=== PATIENT | male | born 1985 | race American Indian/Alaskan Native ===

== ENCOUNTER 2017-10-15 22:48 | Emergency (ER) | payer OTHER ==
[2017-10-15 23:34] LABS: Basophils % (Auto) 0.3 % (0.0-1.8); Eosinophils % (Auto) 0.1 % (0.0-4.3); Hematocrit 46.8 % (35.5-45.6); Hemoglobin 15.7 gm/dl (11.8-15.2); Lymphocytes # (Auto) 0.8 K/mm3 (1.2-5.4); Lymphocytes % (Auto) 7.7 % (13.4-35.0); Mean Corpuscular HGB Conc 34 % (32-34); Mean Corpuscular Hemoglobin 32 pg (28-32); Mean Corpuscular Volume 94 fl (84-94); Monocytes # (Auto) 0.5 K/mm3 (0.0-0.8); Monocytes % (Auto) 4.7 % (0.0-7.3); Platelet Count 186 K/mm3 (140-440); Red Blood Count 4.97 M/mm3 (3.65-5.03)
[2017-10-15 23:59] LABS: Alanine Aminotransferase 22 units/L (7-56); Albumin 4.3 g/dL (3.9-5); BUN/Creatinine Ratio 13; Blood Urea Nitrogen 15 mg/dL (9-20); Calcium 9.2 mg/dL (8.4-10.2); Hemolysis Index 9; Lipase 15 units/L (13-60)
[2017-10-16] MEDS ORDERED: ZOFRAN ODT ONE (02:57)
[2017-10-16] MEDS ORDERED: ZOFRAN ODT PO ONE (03:01)
[2017-10-16 05:36] LABS: Bacteria,Urine 1+ /HPF (Negative); Bilirubin,Urine NEG (Negative); Blood,Urine MOD (Negative); Color,Urine Yellow (Yellow); Mucus,Urine 2+ /HPF; Urobilinogen,Urine < 2.0 mg/dL (<2.0)
[2017-10-16] MEDS ORDERED: ZOFRAN IV ONE (06:11)
[2017-10-16] MEDS ORDERED: NACL 0.9% 1000 ML 1,000 ML IV ONE (06:12)
[2017-10-16] MEDS ORDERED: TORADOL IV ONE (06:15)
[2017-10-16] MEDS ORDERED: TORADOL ONE (06:15)
[2017-10-16] MEDS ORDERED: cefTRIAXone 1 GM in NACL 0.9% 20 ML IV ONE (07:10)
[2017-10-16] MEDS ORDERED: PEPCID IV ONE (07:10)
[2017-10-16] MEDS ORDERED: ZITHROMAX PO ONE (07:12)
[2017-10-16] MEDS ORDERED: BENADRYL IV ONE (07:12)
[2017-10-16] MEDS ORDERED: REGLAN IV ONE (07:12)
--- NOTE | 2017-10-16 07:46 | Emergency Department Report ---
ED N/V/D HPI - General Chief complaint: Nausea/Vomiting/Diarrhea Stated complaint: BODY PAIN/NAUSEA/VOMITING Time Seen by Provider: 10/16/17 06:58 Source: patient Mode of arrival: Ambulatory Limitations: No Limitations - History of Present Illness Initial comments: 32-year-old male with no past medical or surgical history presents to Hospital complaints of nausea, vomiting, diarrhea, abdominal pain since yesterday. [place]. Denies sick contacts, international travel , hematemesis, hematochezia, melena, or fever. Pain is generalized, sharp, intermittent and fluctuating and is moderate to severe in intensity. Patient also had a lot of back pain times one day and denies dysuria, hematuria, or penile discharge. - Related Data Previous Rx's Medication Instructions Recorded Last Taken Type Cephalexin [Keflex] 500 mg PO BID #14 capsule 10/16/17 Unknown Rx Ondansetron [Zofran Odt] 4 mg PO Q8HR PRN #20 tab.rapdis 10/16/17 Unknown Rx Promethazine [Phenergan] 25 mg GA Q6HR PRN #12 supp.rect 10/16/17 Unknown Rx traMADol [Ultram 50 MG tab] 50 mg PO Q6HR PRN #15 tablet 10/16/17 Unknown Rx Allergies Allergy/AdvReac Type Severity Reaction Status Date / Time No Known Allergies Allergy Unverified 10/15/17 22:56 ED Review of Systems ROS: Stated complaint: BODY PAIN/NAUSEA/VOMITING Other details as noted in HPI Comment: All other systems reviewed and negative ED Past Medical Hx - Past Medical History Previous Medical History?: No - Surgical History Past Surgical History?: No - Social History Smoking Status: Never Smoker Substance Use Type: None - Medications Home Medications: Home Medications Medication Instructions Recorded Confirmed Last Taken Type Cephalexin [Keflex] 500 mg PO BID #14 capsule 10/16/17 Unknown Rx Ondansetron [Zofran Odt] 4 mg PO Q8HR PRN #20 tab.rapdis 10/16/17 Unknown Rx Promethazine [Phenergan] 25 mg GA Q6HR PRN #12 supp.rect 10/16/17 Unknown Rx traMADol [Ultram 50 MG tab] 50 mg PO Q6HR PRN #15 tablet 10/16/17 Unknown Rx ED Physical Exam - General Limitations: No Limitations - Other Other exam information: General: No limitations, patient is alert in no acute distress Head exam: Atraumatic, normocephalic Eyes exam: Normal appearance, nonicteric sclerae ENT: Mucous membrane Neck exam: Normal inspection, full range of motion, no meningismus nontender Respiratory exam: Clear to auscultation bilateral, no wheezes, rales, crackles Cardiovascular: Normal rate and rhythm, normal heart sounds Abdomen: Soft, nondistended, and nontender, with normal bowel sounds, no rebound, or guarding Extremity: Full range of motion normal inspection no deformity Back: Normal Inspection, full range of motion, no tenderness Neurologic: Alert, oriented x3, cranial nerves intact, no motor or sensory deficit Psychiatric: normal affect, normal mood Skin: Warm, dry, intact ED Course Vital Signs 10/15/17 10/16/17 10/16/17 22:52 02:59 05:38 Temperature 98.9 F 98.3 F Pulse Rate 77 67 44 L Respiratory 18 20 10 L Rate Blood Pressure 128/66 126/87 O2 Sat by Pulse 100 100 100 Oximetry 10/16/17 10/16/17 10/16/17 05:45 06:00 06:15 Temperature Pulse Rate 47 L Respiratory 16 11 L 12 Rate Blood Pressure 134/86 138/83 138/83 O2 Sat by Pulse 97 98 100 Oximetry 10/16/17 10/16/17 10/16/17 06:29 06:31 06:45 Temperature Pulse Rate Respiratory 16 18 11 L Rate Blood Pressure 120/71 113/53 O2 Sat by Pulse 100 100 100 Oximetry 10/16/17 10/16/17 10/16/17 07:01 07:15 07:30 Temperature Pulse Rate Respiratory 14 15 10 L Rate Blood Pressure 126/63 126/63 120/75 O2 Sat by Pulse 100 99 100 Oximetry 10/16/17 10/16/17 10/16/17 07:45 08:01 08:15 Temperature Pulse Rate Respiratory 14 15 19 Rate Blood Pressure 120/60 129/63 120/58 O2 Sat by Pulse 100 100 100 Oximetry 10/16/17 10/16/17 10/16/17 08:30 08:45 09:00 Temperature Pulse Rate Respiratory 19 22 19 Rate Blood Pressure 127/58 120/58 125/61 O2 Sat by Pulse 95 100 100 Oximetry 10/16/17 10/16/17 09:15 09:30 Temperature Pulse Rate Respiratory 15 14 Rate Blood Pressure 125/61 116/67 O2 Sat by Pulse 100 99 Oximetry - Reevaluation(s) Reevaluation #1: 10/16/17 13:07 Abdomen remains nontender on exam. ED Medical Decision Making - Lab Data Result diagrams: 10/15/17 23:05 10/15/17 23:05 Lab Results 10/15/17 10/15/17 10/16/17 Range/Units 23:05 23:05 05:25 WBC 10.2 (4.5-11.0) K/mm3 RBC 4.97 (3.65-5.03) M/mm3 Hgb 15.7 H (11.8-15.2) gm/dl Hct 46.8 H (35.5-45.6) % MCV 94 (84-94) fl MCH 32 (28-32) pg MCHC 34 (32-34) % RDW 14.0 (13.2-15.2) % Plt Count 186 (140-440) K/mm3 Lymph % (Auto) 7.7 L (13.4-35.0) % [place] % (Auto) 4.7 (0.0-7.3) % Eos % (Auto) 0.1 (0.0-4.3) % Baso % (Auto) 0.3 (0.0-1.8) % Lymph # 0.8 L (1.2-5.4) K/mm3 [place] # 0.5 (0.0-0.8) K/mm3 Eos # 0.0 (0.0-0.4) K/mm3 Baso # 0.0 (0.0-0.1) K/mm3 Seg Neutrophils % 87.2 H (40.0-70.0) % Seg Neutrophils # 8.9 H (1.8-7.7) K/mm3 Sodium 134 L (137-145) mmol/L Potassium 4.2 (3.6-5.0) mmol/L Chloride 95.7 L (98-107) mmol/L Carbon Dioxide 23 (22-30) mmol/L Anion Gap 20 mmol/L BUN 15 (9-20) mg/dL Creatinine 1.2 (0.8-1.5) mg/dL Estimated GFR > 60 ml/min BUN/Creatinine Ratio 13 % Glucose 106 H (75-100) mg/dL Calcium 9.2 (8.4-10.2) mg/dL Total Bilirubin 0.70 (0.1-1.2) mg/dL AST 33 (5-40) units/L ALT 22 (7-56) units/L Alkaline Phosphatase 65 (35-129) units/L Total Protein 7.5 (6.3-8.2) g/dL Albumin 4.3 (3.9-5) g/dL Albumin/Globulin Ratio 1.3 % Lipase 15 (13-60) units/L Urine Color Yellow (Yellow) Urine Turbidity Hazy (Clear) Urine pH 5.0 (5.0-7.0) Ur Specific [place] 1.035 H (1.003-1.030) Urine Protein 30 mg/dl (Negative) mg/dL Urine Glucose (UA) Neg (Negative) mg/dL Urine Ketones 20 (Negative) mg/dL Urine Blood Mod (Negative) Urine Nitrite Neg (Negative) Urine Bilirubin Neg (Negative) Urine Urobilinogen < 2.0 (<2.0) mg/dL Ur Leukocyte Esterase Sm (Negative) Urine WBC (Auto) 12.0 H (0.0-6.0) /HPF Urine RBC (Auto) 17.0 (0.0-6.0) /HPF U Epithel Cells (Auto) 1.0 (0-13.0) /HPF Urine Bacteria (Auto) 1+ (Negative) /HPF Urine Mucus 2+ /HPF - Radiology Data Radiology results: report reviewed ct abd/pelvis IV contrast 1. Slightly prominent liver with CT appearance suggesting possible hepatitis. Alternatively, subtle calculus cholecystitis may also be correlated for clinically and with laboratory values in an appropriate setting. 2. Various other findings as at the imaged lung bases, hepatic hemangioma, normal appendix and abnormal small pelvic free fluid in this male patient, as described. I phoned the above results to Dr. Pierce in the ER, 10:40 AM, 10/16/2017. Thank you for the opportunity to participate in this patient's care. - Medical Decision Making n/v Patient complains that she has abdominal pain is intermittent but no focal abdominal tenderness on exam. CT showed possible findings of hepatitis however patient has normal LFTs without right upper quadrant pain. Ultrasound does not reveal any acute abnormalities see report for incidental findings. Patient is tolerating by mouth after receiving multiple anti-medics, Reglan, Zofran, and Phenergan. Will be discharged on medication for current symptoms and treated for gastroenteritis and uti. Patient received Rocephin and azithromycin in the ED and we be discharged on keflex. Gonorrhea and chlamydia pending - Differential Diagnosis gastroenteritis, bowel syndrome, pancreatitis, UTI, urethritis Critical Care Time: No Critical care attestation.: If time is entered above; I have spent that time in minutes in the direct care of this critically ill patient, excluding procedure time. ED Disposition Clinical Impression: Gastroenteritis, UTI (urinary tract infection) Disposition: TO HOME OR SELFCARE Is pt being admited?: No Does the pt Need Aspirin: No Condition: Stable Instructions: Gastroenteritis (ED), Urinary Tract Infection in Men (ED) Additional Instructions: Take the medication as prescribed. Follow-up with the doctor provided or with a doctor of your choice. Return is symptoms worsen as indicated by your discharge instructions. Your gonorrhea and chlamydia tests are pending and take approximately 3-4 days result. You may obtain results in medical records with a photo ID. You may also obtain results through the follow-up doctor office via medical record request. Prescriptions: Cephalexin [Keflex] 500 mg PO BID #14 capsule Ondansetron [Zofran Odt] 4 mg PO Q8HR PRN #20 tab.rapdis PRN Reason: Nausea And Vomiting Promethazine [Phenergan] 25 mg GA Q6HR PRN #12 supp.rect PRN Reason: Nausea And Vomiting traMADol [Ultram 50 MG tab] 50 mg PO Q6HR PRN #15 tablet PRN Reason: Pain Referrals: [facility] [Provider Group] - 3-5 Days Time of Disposition: 13:53
[2017-10-16] MEDS ORDERED: D5NS 1,000 ML IV SCH (08:00)
[2017-10-16] MEDS ORDERED: PHENERGAN PR ONE ×2 (09:02→13:53)
--- NOTE | 2017-10-16 11:03 | Cat Scan Report ---
CT ABDOMEN AND PELVIS WITH CONTRAST INDICATION: Nausea, vomiting, diarrhea. COMPARISON: None similar at this institution. FINDINGS: Abdomen and pelvis CT performed following intravenous administration of 100 cc of Omnipaque 300. LUNG BASES: Mild bibasilar scarring with possible subtle right pleural thickening as on axial series 2, image 14 versus fluid. No pericardial or left pleural effusion. Nonspecific distal esophageal wall prominence/thickening, not excluded for gastroesophageal reflux and/or hiatal hernia, amongst others. ABDOMEN: Approximately 1.4 cm hepatic hypodensity centrally on axial series 2, image 31 with peripheral nodular enhancement and much filling in on the delayed phase, suggesting a hemangioma. Somewhat prominent liver with left hepatic lobe tip wrapping around the spleen in the left upper quadrant. Right hepatic lobe approximately 16 cm in midclavicular length. Slight periportal edema may be suspected centrally versus subtle biliary prominence. CBD caliber at the tobias hepatis though approximately 2-3 mm, axial image 53. No radiopaque gallstones. Gallbladder somewhat elongated/distended at approximately 11 cm length. Subtle gallbladder wall prominence and/or pericholecystic fluid suspected as on axial image 76, series 2, amongst others. Spleen, pancreas, adrenals, aorta, IVC and kidneys within normal limits. Nonopacified GI tract evaluation limited, though grossly nonobstructive. Normal appendix. No size significant adenopathy. PELVIS: Minimal pelvic free fluid noted pararectal in the deep pelvis as on axial image 144, series 2. Grossly unremarkable rectosigmoid, prostate/seminal vesicles and suboptimally distended urinary bladder. Unremarkable bones. CONCLUSION: 1. Slightly prominent liver with CT appearance suggesting possible hepatitis. Alternatively, subtle calculus cholecystitis may also be correlated for clinically and with laboratory values in an appropriate setting. 2. Various other findings as at the imaged lung bases, hepatic hemangioma, normal appendix and abnormal small pelvic free fluid in this male patient, as described. I phoned the above results to Dr. Pierce in the ER, 10:40 AM, 10/16/2017. Thank you for the opportunity to participate in this patient's care.
--- NOTE | 2017-10-16 12:21 | Ultrasound Report ---
ULTRASOUND ABDOMEN INDICATION: Distended gallbladder on CT. COMPARISON: CT from earlier today. FINDINGS: Abdominal sonography demonstrates grossly normal hepatic contours. No evidence of biliary dilatation. At least 2 right hepatic echogenic lesions measure approximately 2.3 and 1.2 cm as on images 13-14, in keeping with small hemangiomas. Mild diffuse hepatic coarsening also not excluded, nonspecific. Gallbladder approximately 9.1 cm in length. No definite gallstones, pericholecystic fluid or positive sonographic Harry's sign. Gallbladder wall thickness is 2.9 mm. CBD caliber is 3.8 mm. Homogenous spleen, 9.5 cm in length. No ascites. Normal imaged pancreas, aorta and IVC. No hydronephrosis. Right kidney is 10.7 x 4.7 x 4.8 cm with cortical thickness of 1.1 cm. Left kidney estimated at 10.9 x 4.6 x 5 cm with cortical thickness of 1.6 cm. CONCLUSION: No acute gallbladder sonographic abnormality identified in this patient with 2 small right hepatic lobe hemangiomas and slight hepatic coarsening, as described. Please correlate. Thank you for the opportunity to participate in this patient's care.
[2017-10-16 14:19] VITALS: BP 108/56
== END 2017-10-16 14:18 | disposition home or self-care (01) ==
LOC: ED 22:48
DX: K52.9 Noninfective gastroenteritis and colitis, unspecified (principal); N39.0 Urinary tract infection, site not specified
CPT/HCPCS: 36415; 74177; 76700; 80053; 81001; 83690; 85025; 87591; 96361; 96374; 96375; 99284; J0696; J1200; J1885; J2405; J2765; J7030; J7042; Q9967; Q0162